=== PATIENT | female | born 1980 | race Caucasian/White ===

== ENCOUNTER 2024-03-07 19:35 | Emergency (ER) | payer SELFPAY ==
[2024-03-07 19:48] VITALS: BP 165/93; PULSE 103; RESP 20; TEMP 36.3; O2SAT 97
--- NOTE | 2024-03-07 20:11 | ED_ITS ---
HPI - Skin/Abscess/Foreign Bdy General Chief complaint: Skin/Abscess/Foreign Body Stated complaint: Boil/Cellulitis on Buttocks Time Seen by Provider: 03/07/24 20:06 Source: patient Mode of arrival: ambulatory Limitations: no limitations History of Present Illness HPI narrative: Patient presents today with a boil to her right buttock times 10 days that has been worsening since onset. She has a history of hidradenitis suppurative and has had multiple abscesses in the past. She has tried to drain it at home without success. Related Data Allergies Allergy/AdvReac Type Severity Reaction Status Date / Time sulfamethoxazole (From Allergy Mild Shakiness Verified 03/07/24 19:45 Bactrim) trimethoprim (From Bactrim) Allergy Mild Shakiness Verified 03/07/24 19:45 acetaminophen (From Vicodin) Allergy Agitated Verified 03/07/24 19:45 hydrocodone (From Vicodin) Allergy Agitated Verified 03/07/24 19:45 Review of Systems Review of Systems: CONSTITUTIONAL: Denies body aches, fever, chills, or sweats. EYES: Denies visual changes, redness, or discharge. ENT: Denies rhinorrhea, congestion, sore throat, or otalgia. CARDIOVASCULAR: Denies chest pain, palpitations, or edema. RESPIRATORY: Denies cough or dyspnea. GASTROINTESTINAL: Denies abdominal pain, nausea, vomiting, or diarrhea. GENITOURINARY: Denies dysuria or hematuria. SKIN: + abscess to right buttock MUSCULOSKELETAL: Denies back pain, joint pain, or myalgia. NEUROLOGIC: Denies headache, numbness, tingling, or weakness. PSYCH: Denies depression or anxiety. [facility] Past Medical History Medical History (Updated 03/07/24 @ 20:42 by Danna Hernández, [facility], ) Hidradenitis suppurativa Comments At time of signature, I have reviewed and agree with nursing past medical, surgical, social and family history unless otherwise noted. Please see nursing chart for further information. There is no relevant family history pertinent to the presenting complaint Exam Narrative: GENERAL: Well-appearing, well-nourished, and in no acute distress. HEAD: Normocephalic, atraumatic. EYES: EOMI. No redness or drainage. Conjunctivae normal. ENT: Mucous membranes pink and moist. NECK: Normal AROM. CHEST: No respiratory distress. EXTREMITIES: Normal range of motion. No edema. SKIN: Warm, dry, no rash. Capillary refill normal. Normal skin turgor. 2.5 cm round fluctuant lesion to the right buttock with 5.5 by 7 cm area of erythema and induration with a 13 x 13 cm area of erythema surrounding. Tender to palpation. No active drainage. NEURO: No focal deficits. Alert and oriented x3. Gait steady. PSYCH: Normal affect. No signs of depression or anxiety. Course Course Level of Care: Express Care Visit Vital Signs Vital signs: Vital Signs Temperature 97.3 F L 03/07/24 19:48 Pulse Rate 103 H 03/07/24 19:48 Respiratory Rate 03/07/24 19:48 Blood Pressure 165/93 H 03/07/24 19:48 Pulse Oximetry 97 03/07/24 19:48 Oxygen Delivery Room Air 03/07/24 19:48 Temperature 97.3 F L 03/07/24 19:48 Pulse Rate 103 H 03/07/24 19:48 Respiratory Rate 03/07/24 19:48 Blood Pressure 165/93 H 03/07/24 19:48 Pulse Oximetry 97 03/07/24 19:48 Oxygen Delivery Room Air 03/07/24 19:48 Reviewed Procedures Abscess I/D other: Date of Incision: 03/07/24 Time of Incision: 20:38 Side (if applicable): right (buttock) Local Anesthetic: lidocaine 1% and with epi Amount of anesthesia used (mL): 5 Technique: incised with #11 blade Amount of fluid expressed (mL): 4 Irrigation: Yes Packing used?: iodoform I&D Results: Pus and Blood Abcess I&D Additional Comments: Dressed with Band-Aid MDM - Skin/Abscess/Foreign Bdy MDM Narrative Medical decision making narrative: Abscess has been lanced and drained and dressed. Prescription for Keflex sent to pharmacy. Anticipatory guidance given. Differential Diagnosis Differential diagnosis: Likely abscess of skin or subcutaneous tissue and cellulitis Critical Care Time Critical Care Time Critical Care Time: No Discharge Plan Discharge Clinical Impression: Abscess of buttock, right Patient Disposition: Home, Self-Care Condition: Stable Instructions: Antibiotic Form, Abscess Incision and Drainage (DC) Additional Instructions: Your abscess has been lanced and drained. Please keep the packing and dressing intact for 48 hours, then remove at home and keep the wound covered until sc abbed over. Please take the Keflex as prescribed until gone. Follow-up with your PCP with any additional concerns. Your blood pressure was elevated above 120/80 today at Urgent Care. This puts you above the threshold for follow up. Please schedule a followup visit with your personal physician as soon as possible, for further evaluation and treatment. Even blood pressure exceeding 120/80 may indicate pre-hypertension. Patient Language: Nigerian Prescriptions: New cephalexin 500 mg capsule 500 mg PO Q6H 10 Days Qty: 40 0RF Follow-up/Referrals: PHYSICIAN NOT ON STAFF,NONSTAFF [Primary Care Provider] - Time of Disposition: 20:41
[2024-03-07] MEDS: LIDO 1%/EPINEPHRINE 1:100,000 20 ML VIAL 10 ML INFILTRATE (20:15)
== END 2024-03-07 20:44 | disposition home or self-care (01) ==
PROVIDERS: Emergency Provider Nurse Practitioner
DX: L02.31 Cutaneous abscess of buttock (principal)
CPT/HCPCS: 10061; 99213; G0463; J2004